=== PATIENT | male | born 1925 | race Caucasian/White ===

== ENCOUNTER 2016-09-17 17:25 | Inpatient (IN) | payer MEDICARE ==
[~2016-09-17] VITALS: Ht 180.3 cm; Wt 73.2 kg
[~2016-09-17 17:25] MED LIST: ACETAMINOPHEN325 M1 PO; AMLODIPINE BESY10 MG PO; ATENOLOL25 MG PO; CENTRUM SILVER1 EAC1 PO; COLACE100 MG PO; DOXAZOSIN MESYLA1 MG PO; KLOR-CON M2020 MEQ PO; LASIX20 MG PO; MAG-OXIDE400 MG PO; NORCO 5-325 TA1 EACH PO; PRILOSEC20 MG PO; RANITIDINE HCL150 MG PO
--- NOTE | 2016-09-17 21:15 | NUR ---
PT ARRIVED FROM E.D. VIA STRETCHER, REPORT RECEIVED FROM RIA ZULUAGA. PT IS ALERT AND ORIENTED. RATES PAIN 1/10 IN RIGHT CLAVICLE, BRUISE AND SWELLING NOTED AT SITE, PT ALSO HAS SCATTERED BRUISES ON ARMS. LUNGS CLEAR, RA. HR REGULAR, MURMUR NOTED, PT HAS PACEMAKER IN PLACE. BOWEL TONES ACTIVE, DENIES NAUSEA. CMS INTACT, NO EDEMA NOTED. INSTRUCTED USE OF CALL LIGHT, BED ALARM IS ON FOR SAFETY. WILL CONTINUE TO MONITOR.
--- NOTE | 2016-09-17 21:45 | NUR ---
ONE TIME SCHEDULED DOSE OF NORCO GIVEN. PT CURRENTLY RATES PAIN 03/17. DENIES FURTHER REQUESTS.
--- NOTE | 2016-09-17 22:48 | NUR ---
CHECKED IN ON PT WHO IS RESTING WITH EYES CLOSED. WOKE WHILE I WAS SPEAKING WITH HIS DAUGHTER. HE DENIES PAIN. DENIES FURTHER REQUESTS AT THIS TIME, WILL CONTINUE TO MONITOR.
--- NOTE | 2016-09-18 00:30 | NUR ---
PT APPEARS TO BE SLEEPING, NO APPARENT DISTRESS. RESPIRATIONS EVEN AND UNLABORED. PT'S DAUGHTER IS AT BEDSIDE. WILL CONTINUE TO MONITOR.
--- NOTE | 2016-09-18 02:07 | NUR ---
ASSESSMENT COMPLETED. REPORTS THAT PAIN IS MINIMAL AND TOLERABLE. BRUISE TO RIGHT CLAVICLE NOW APPEARS ON RIGHT CHEST/AXILLA. NO OTHER CHANGES FROM PREVIOUS ASSESSMENT. PT'S DAUGHTER IS AT BEDSIDE. PT DENIES FURTHER REQUETS AT THIS TIME, WILL CONTINUE TO MONITOR.
--- NOTE | 2016-09-18 03:56 | NUR ---
PT APPEARS TO BE SLEEPING, NO APPARENT DISTRESS. RESPIRATIONS EVEN AND UNLABORED. DAUGHTER REMAINS AT BEDSIDE. WILL CONTINUE TO MONITOR.
--- NOTE | 2016-09-18 05:14 | NUR ---
E.D. ADMIT. ALERT/ORIENTED. RATES PAIN 03/17, RECEIVED ONE TIME DOSE OF PO NORCO. LUNGS CLEAR, RA. HR REGULAR, MUMUR, PACER IN PLACE. BOWEL TONES ACTIVE, DENIES NAUSEA. SKIN FRAGILE, SCATTERED BRUISES ON ARMS, LARGE BRUISE/SWELLING TO RIGHT CLAVICLE THAT EXTENDS DOWN TO CHEST/AXILLA. 1-2PA WITH FWW. [place]. CLEAR LIQUID DIET. IV SL, PATENT. BED ALARM ON FOR SAFETY. PT'S DAUGHTER AT BEDSIDE.
--- NOTE | 2016-09-18 06:30 | NUR ---
NOTIFIED DR. SCHWARTZ THAT PT HAS HAD LOW URINE OUTPUT, 75ML FOR 0600 I&O AND 100ML FOR 0200 I&O. PT HAS BEEN SLEEPING SOUNDLY AND NOT TAKING PO INTAKE. NO NEW ORDERS RECEIVED AT THIS TIME, DR. SCHWARTZ WOULD LIKE TO WAIT AND ALLOW PT TO DRINK BEFORE MAKING ANY ADJUSTMENTS TO ORDERS.
--- NOTE | 2016-09-18 07:20 | NUR ---
BEDSIDE REPORT RECEIVED FROM JIG BORE OPERATOR RN USING 5 P'S. PT AWAKE AND ALERT. BRUISE NOTED TO R NECK/SHOULDER. PT REPORTS PAIN IN SHOULDER AND ABD. STATES PAIN IN ABD FROM NO BM X 3 DAYS. STOOL SOFTENER ORDERED BY . DAUGHTER AT BEDSIDE. SL TO L FOREARM. PT DENIES NEEDS AT THIS TIME. CALL LIGHT IN REACH.
--- NOTE | 2016-09-18 08:35 | NUR ---
RN IN TO GIVE MEDS AND DO AM ASSESSMENT. DAUGHTER STATES PT DOES NOT TAKE MEDS WITH MEAL SINCE HE OFTEN VOMITS MEALS. PT STATES FEELS FINE AND WILL TAKE LASIX WITH BREAKFAST. DAUGHTER STATES PT USUALLY KNOWS OWN LIMITS. LASIX GIVEN. PT VOMITS SHORTLY AFTER. APPROX 100 ML. PILL NOT VISUALIZED, SO UNSURE IF VOMITED. DAUGHTER STATES THIS IS NORMAL FOR PT. PT EATS A SMALL AMOUNT, EXCUSES SELF TO BATHROOM TO VOMIT, THEN RETURNS TO TABLE TO EAT A SMALL AMOUNT, AND CONTINUES PATTERN THROUGHOUT MEALS. DAUGHTER STATES PT WORRIED ABOUT WEIGHT ON SCALE, AND VOMITING SEEMS TO WORSEN WEIGHT INCREASES. DAUGHTER STATES PT DOES NOT VOMIT WHEN EATING AT SOMEONE ELSE'S HOUSE. DAUGHTER STATES IT DOESN'T MATTER WHAT KIND OF FOOD PT EATS. HE HAD COMPLAINED ABOUT HAVING TROUBLE CHEWING MEAT, SO DAUGHTER PREPARED SOFTER MEALS SUCH MASHED POTATOES, BUT NOTICED NO DIFFERENCE. PT TO CALL WHEN FINISHED WITH BREAKFAST AND FEELS READY FOR PILLS. BP MEDS HELD FOR SBP >115 PER PERAMETERS. CALL LIGHT IN REACH. DAUGHTER AT BEDSIDE.
--- NOTE | 2016-09-18 10:00 | NUR ---
PT ABLE TO FINISH TAKING AM MEDS WITHOUT DIFFICULTY. PHYSICAL THERAPY IN TO WORK WITH PT. DAUGHTER REMAINS AT BEDSIDE.
--- NOTE | 2016-09-18 13:00 | NUR ---
PT FINISHED LUNCH WITHOUT VOMITING. UP TO BR WITH 2 PERSON ASSIST FOR LARGE BM. DAUGHTER ATTMEPTING TO GET PT UP WITH RN AND CHILD AND FAMILY COUNSELOR TO ROOM IN RESPONSE TO CALL LIGHT. EXPLAINED IMPORTANCE OF WAITING FOR STAFF TO ASSIST PT. DAUGHTER EXPRESSES UNDERSTANDING. PT ASSISTED BACK TO BED. CALL LIGHT IN REACH. BED ALARM ON.
--- NOTE | 2016-09-18 13:00 | NUR ---
PT RESTING IN BED, DAUGHTER ON PHONE. SHE MOTIONED ME IN. PT HARD OF HEARING, BUT MANAGED TO KEEP CONVERSATION MOVING ALONG. HE HAS A LITTLE SENSE OF HUMOR, ANDF REQUESTED PRAYER. WILL FOLLOW NEEDED
[2016-09-18] MEDS ORDERED: OMEPRAZOLE40 MG PO (15:30)
[2016-09-18] MEDS ORDERED: DOXAZOSIN MESYLA2 MG PO (15:32)
--- NOTE | 2016-09-18 15:34 | NUR ---
MED REC COMPLETE WITH [facility] REFILL HISTORY.
--- NOTE | 2016-09-18 16:26 | NUR ---
REPORT TO OLIVA ROLLINS USING 5 P'S. TO ASSUME CARE.
--- NOTE | 2016-09-18 16:49 | NUR ---
SNOW GROOMER shaved patient while in bed.
--- NOTE | 2016-09-18 18:13 | NUR ---
PATIENT RESTING IN BED, FAMILY AT BESIDE CARRYING FOR PATIENT REQUESTS. CALLING APROPRIATLEY WHEN WANTING TO GET UP OUT OF BED AND BACK INTO BED. COMMUNITY HEALTH SPECIALIST APPEARS TO BE IN ROOM FREQUENTLY. PATIENT PAIN WELL CONTROLLED, PAIN NOW 3/10 ON PAIN SCALE. PATIENT EATING DINNER, TOLERATING WELL.
--- NOTE | 2016-09-18 19:00 | NUR ---
RECEIVED REPORT AROUND 1900. PT IS USING THE BSC. I WILL INTRODUCE MYSELF AFTER HE IS BACK IN BED.
--- NOTE | 2016-09-18 20:30 | NUR ---
PT AT TIME IS IN BED NAPING. PT STATED THAT HE IS PAINFUL IF MOVING. PT STILL HAS A LARGE BRUISE ON RIGHT NECK AND SHOULDER AREA. PT STATED AND SO DID HIS DAUGHTER THAT THEY DO NOT FEEL SAFE ENOUGH FOR HIM TO GO HOME ON 09/19/16. DAUGHTER ALSO NEEDS HOME HEALTH IN ORDER TO PROPERLY CARE FOR HER FATHER. DAUGHTER SEEMS EXHAUSTED AND OVERWHELMED BY HER FATHERS CARE NEEDS. ALL LOBES WERE CLEAR. PT WAS INSTRUCTED TO TUCK HIS CHIN IN WHEN SWALOWING SWALLOW STUDY STILL NEEDS TO BE DONE. I HELD TENORMIN DUE TO A SBP OF 114. PT IS VERY WEAK OVERALL.
--- NOTE | 2016-09-19 02:35 | NUR ---
PT IS SLEEPING AT THIS TIME.
--- NOTE | 2016-09-19 03:54 | NUR ---
ASSISTED PT BACK TO BED. PT RECEIVED 1 TAB OF NORCO5/325. PT IS VERY WEAK AND HIS URINE OUTPUT IS NOT SUFFICENT. 25ML SINCE 2199.
--- NOTE | 2016-09-19 06:00 | NUR ---
PT HAD TROUBLE SLEEPING FOR THE MOST PART DURING THIS SHIFT. PT RECEIVED 1 TAB OF NORCO THIS SHIFT. PT IS VERY WEAK AND NOT REALLY SAFE TO MOVE EVEN WITH TWO PEOPLE ASSISTING HIM. PT ALSO DOES NOT FEEL STRONG ENOUGH TO GO HOME. HIS DAUGHTER AGREES. PT NEEDS HOME HEALTH WELL. HIS DAUGHTER IS OVERWHELMED WITH HIS CARE NEEDS AT THIS POINT.
--- NOTE | 2016-09-19 08:30 | NUR ---
Patient resting in bed with his eyes closed.
--- NOTE | 2016-09-19 08:45 | NUR ---
PATIENT ASSISTED UP IN BED AND BREAKFAST PLACED IN FRONT OF HIM. PATIENT ABLE TO FEED HIMSELF BREAKFAST AND PILLS GIVEN WITH APPLESAUCE. BLOOD PRESSURE MEDICATION HELD DUE TO LOW SYSTOLIC BLOOD PRESSURE OF 103. DAUGHTER REMAINS IN THE ROOM BUT IS ASLEEP AT THIS TIME. PATIENT ABLE TO COMMUNICATE NEEDS.
--- NOTE | 2016-09-19 09:07 | NUR ---
DR SCHWARTZ NOTIFIED THAT BLOOD PRESSURE WAS 103/54 WITH A PULSE OF 60 AND THAT ALL BLOOD PRESSURE WAS HELD.
--- NOTE | 2016-09-19 09:46 | NUR ---
PATIENT REFUSED PHYSICAL THERAPY AT THIS TIME, PHYSICAL THERAPIST WILL COME BACK LATER TO WORK WITH HIM.
--- NOTE | 2016-09-19 10:23 | NUR ---
PATIENT UP TO THE CHAIR WITH THE HELP FROM PHYSICAL THERAPY, LINEN CHANGED AND A NEW GOWN PLACED ON THE PATIENT AT THIS TIME. PATIET GIVEN A WARM BLANKET AND CALL LIGHT WITHIN REACH.
--- NOTE | 2016-09-19 10:38 | NUR ---
Patient is up in his chair visiting with family at this time. Patient did not void for this vitals time. Notified his RN.
--- NOTE | 2016-09-19 11:30 | NUR ---
PATIENT VOIDED 200 MLS AT THIS TIME IN A URINAL, PT GOING TO STAY UP IN THE CHAIR FOR LUNCH THEN GET INTO BED WHEN HE IS FINISHED.
--- NOTE | 2016-09-19 12:03 | NUR ---
PATIENT IS SITTING UP IN THE CHAIR WAITING FOR LUNCH. NO REQUESTS AT THIS TIME.
--- NOTE | 2016-09-19 12:55 | NUR ---
PT RESTING IN BED AFTER MUCH TIME UP IN THE CHAIR. DENIES DISCOMFORTS OR NEEDS OF
--- NOTE | 2016-09-19 14:18 | NUR ---
PT SLEEPING SOUNDLY DAUGHTER IN ROOM
--- NOTE | 2016-09-19 14:37 | NUR ---
PATIENT RESTING IN BED. VITALS TAKEN. PATIENT USED URINAL AT THIS TIME WITH 280CC OUT.
--- NOTE | 2016-09-19 18:12 | NUR ---
DAUGHTER REMAINS IN THE ROOM WITH PT. PT TOLERATES MOST OF EVENING MEAL, RETURNS TO BED TO REST
--- NOTE | 2016-09-19 20:00 | NUR ---
RECEIVED REPORT AROUND 1899. FOUND PT IN BED SLEEPING.
--- NOTE | 2016-09-19 22:00 | NUR ---
ALL LOBES ARE CLEAR. PT HAS SOME UPPER AIRWAY FLEM WITH WHICH HE HAS DIFFICULTY TO GET IT UP. I URGE PT TO TUCK HIS CHIN WHEN HE SWALLOWS ANYTHING. PT IS STILL VERY WEAK. OVERALL THERE HAS BEEN NO CHANGE IN STATUS FOR THIS PT.
--- NOTE | 2016-09-19 23:00 | NUR ---
ROUNDED ON PATIENT. PATIENT AND FAMILY DENY AND COMPLAINTS OR CONCERNS. ALL QUESTIONS ANSWERED.
--- NOTE | 2016-09-20 01:18 | NUR ---
PT IS SLEEPING AT THIS TIME.
--- NOTE | 2016-09-20 04:04 | NUR ---
PT IS SLEEPING AT THIS TIME.
--- NOTE | 2016-09-20 05:08 | NUR ---
PT HAD AN UNEVENTFUL NIGHT. PT SLEPT MOST OF THE NIGHT. PT DENIES PAIN WHILE IN BED. NO CHANGE IN STATUS FOR THIS PT.
--- NOTE | 2016-09-20 07:32 | NUR ---
RECIEVED BEDSIDE REPORT FROM RIA FLORES. PT SLEEPING, BREATHING EVEN AND UNLABORED. DAUGHTER AT BEDSIDE.
--- NOTE | 2016-09-20 08:20 | NUR ---
PT SITTING UP IN BED WITH DAUGHTER ASSISTING WITH FEEDING. CUES TO SWALLOW. PT DENIES PAIN AT THIS TIME. DENIES NAUSEA, HAS AN EMISIS BAG AT BEDSIDE. DAUGHTER REPORTS IT IS DUE TO SWALLOWING "DOWN THE WRONG PIPE". DENIES NEED FOR PAIN MEDICATION AT THIS TIME. PT AWAKE AND ALERT, ASKING QUESTIONS REGARDING CARE. HEEL PROTECTORS IN PLACE.
--- NOTE | 2016-09-20 08:57 | NUR ---
REPOSITIONED PT IN BED. NO PAIN REPORTED.
--- NOTE | 2016-09-20 11:07 | NUR ---
PT IN BED SLEEPING. BREATHING EVEN AND UNLABORED.
--- NOTE | 2016-09-20 12:16 | NUR ---
PT SLEEPING IN CHAIR. STATES NO PAIN AT THIS TIME.
--- NOTE | 2016-09-20 13:48 | NUR ---
PT MOVED BACK TO BED AND POSITIONED. IV SITE HAS SMALL AMOUNT OF BLOOD, TRANSPERANT DRESSING CHANGED, IV FLUSHES WELL. PT RESTING IN BED.
--- NOTE | 2016-09-20 17:49 | NUR ---
PT FAMILY IS AT BEDSIDE. NO C/O PAIN EXCEPT WITH MOVEMENT, DECLINED PRN PAIN MEDS THIS SHIFT. PT RIGHT SIDE IS BRUISED, NO CHANGE IN BRUISING. PT HAS HX OF LEANING TO RIGHT SIDE. SWALLOW PRECAUTIONS IN PLACE, DAUGHTER ASSISTING WITH FEEDING. ENCOURAGE CHIN TUCK WITH SWALLOWING. 2 PERSON ASSIT. STANDS AT BEDSIDE WITH ASSIST FOR URINAL. NO BM IN 2 DAYS.
--- NOTE | 2016-09-20 20:10 | NUR ---
IN TO SEE PT, DAUGHTER AT BEDSIDE WATCHING TV, PT SLEEPING, CALL LIGHT WITHIN REACH.
--- NOTE | 2016-09-20 20:30 | NUR ---
IN TO SEE PT, VS TAKEN BP 96/47, PULSE 60, RR 17. ASSESSMENT DONE, ATENOLOL HELD PER LOW BP. DR. SCHWARTZ NOTIFIED OF LOW BP. PER DR. SCHWARTZ WATCH PATIENT BP, IF PULSE IS STABLE CONTINUE TO HOLD MEDICATIONS.
--- NOTE | 2016-09-20 23:03 | NUR ---
IN TO SEE PT, PT SLEEPING, DAUGHTER SLEEPING, CALL LIGHT WITHIN REACH.
--- NOTE | 2016-09-21 01:20 | NUR ---
IN TO CHECK ON PT, PT APPEARS TO BE SLEEPING SOUNDLY, DAUGHTER AT BEDSIDE RESTING, CALL LIGHT WITHIN REACH.
--- NOTE | 2016-09-21 02:28 | NUR ---
CALL LIGHT ANSWERED, IN TO ASSIST PT WITH URINAL. PT COMPLAIN OF PAIN IN HIS L SHOULDER. PT STATES IT FEELS LIKE HE "JAMMED HIS SHOULDER". NORCO GIVEN FOR 5/10 PAIN AND VITAL OBTAINED. PT READJUSTED IN BED FOR COMFORT. DAUGHTER AT BEDSIDE AND CALL LIGHT WITHIN REACH.
--- NOTE | 2016-09-21 04:07 | NUR ---
IN TO CHECK ON PT, PT APPEARS TO BE SLEEPING. DAUGHTER SLEEPING AT BEDSIDE. CALL LIGHT WITHIN REACH.
--- NOTE | 2016-09-21 05:08 | NUR ---
PT HAS BEEN RESTING ON AND OFF THROUGH OUT THE NIGHT. PT C/O R SHOULDER PAIN, NORCO GIVEN FOR PAIN. SWALLOW PRECAUTIONS IN PLACE AND SWALLOW EVAL SCHEDULED FOR TODAY. LIQUIDS THICKEN TO NECTAR THICK AND ENCOURAGE TO CHIN TUCK WITH SWALLOWING. BP LOW AT 2200 VITALS, ATENOLOL HELD AND MD NOTIFIED. ASSISTED WITH URINAL IN BED. PT'S DAUGHTER SLEEPING AT BEDSIDE.
--- NOTE | 2016-09-21 06:33 | NUR ---
IN TO SEE PT, VITALS OBTAINED BY PERSONNEL ASSOCIATE, PT AWAKE. PERSONNEL ASSOCIATE ASSISTED WITH WATER. NO FURTHER NEEDS AT THIS TIME. PT'S DAUGHTER AT BEDSIDE. CALL LIGHT WITHIN REACH.
--- NOTE | 2016-09-21 07:40 | NUR ---
RECIEVED BEDSIDE REPORT FROM RIA POSEY AND RIA MENDEZ. PT SLEEPING, BREATHING EVEN AND UNLABORED.
--- NOTE | 2016-09-21 07:55 | CONS ---
[facility] [address] [place], [place] [address] Signed REFERRING PHYSICIANS: Dr. Jesica Ferraro. CHIEF COMPLAINT: Ground level fall onto right shoulder. 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 He lives at home with his daughter. He is supposed to use his walker for ambulation. However, he frequently omits the walker. He often gets going too fast as leaning forward. Yesterday, he wa n christopher to forklift picker a towel from the floor and he fell and struck his right shoulder. He was brought to the emergency room for evaluation. He has quite a bit of bruising over the right shoulder. He was seen by our ER physicians, and a CT scan of his head and s pine and his x-rays were all negative. I was asked to admit him overnight as to general surgeon nutrition club ambassador. In the meantime, he has done just fine. PAST MEDICAL HISTORY: Atrial fibrillation, splenomegaly, hepatomegaly, coronary artery disease, chronic thrombocytopenia. PAST SURGICAL HISTORY: Includes abdominal aortic aneurysm repair, CABG x4, cholecystectomy, tonsillectomy and adenoidectomy, bilateral inguinal hernias, and a pacemaker. SOCIAL HISTORY: He does not smoke or drink. He lives with his daughter, Tiffanie carlos, at [phone]. Wei Hernández is his primary care provider. He generally uses a walker for ambulation. FAMILY HISTORY: Not reviewed. REVIEW OF SYSTEMS: I reviewed 10 systems with Nate and his daughter, really there is nothing new to add. ALLERGIES: Novocain. MEDICATIONS: Whitney, doxazosin, amlodipine, multivitamin, atenolol, docusate, Lasix, Zantac, Prilosec, potassium chloride, and magnesium oxide. PHYSICAL EXAMINATION: VITAL SIGNS: His blood pressure is 122/64, heart rate 71, respiratory rate 18, temperature is 98.1, he is 98%. He is 5 feet 11 inches, 73 kg. GENERAL: Nate is an 89-year-old gentleman, lying supine in his hospital bed. His daughter is in the room. He is a little on the thin side. He clearly has a large hematoma over the right supraclavicular fossa in his right chest wall. LUNGS: Clear to auscultation. Electronically Signed By: ZULMA SCHWARTZ MD 09/21/16 0755 PATIENT NAME: NTAE CALDERA CONSULTATION DATE OF : [birth year] PHYSICIAN: ZULMA SCHWARTZ MD REPORT #: [id number] REPORT IS CONFIDENTIAL AND NOT TO BE RELEASED WITHOUT AUTHORIZATION [facility] [address], [place] [address] Signed Heart: Regular rate and rhythm. ABDOMEN: Benign. LABORATORY DATA: His white blood count 6.2, hemoglobin was 12.7 and is now 1.7, his platelet count was 61,000 and it is now 62,000. His BUN is 34, creatinine 1.23, INR 1.3, PTT 58. Total bilirubin is up a little to 1.6 but the other liver function tests are fine. His albumin is 3.6. RADIOGRAPHIC STUDIES: The x-ray of his right clavicle is fine. CT scan of his head and his spine are fine. ASSESSMENT AND PLAN: Nate is an 89-year-old gentleman who suffered a ground level fall onto the right shoulder. With his thrombocytopenia, he suffered a fairly significant hematoma and bruising over that right shoulder and then on the right chest wall. He has actually done very well overnight. We are going to allow him to eat today. We will resume his chronic medications. We will have our physical therapy folk see him, in fact he just finished physical therapy as an outpatient. We will see how he does tod ay and if he does well maybe home in the morning. I have discussed this with Nate and his daughter, they have expressed understanding and agreed with the above plan. MD MIGUEL Ayala/Mike /[id number] cc:Wei Hernández Electronically Signed By: ZULMA SCHWARTZ MD 09/21/16 0755 PATIENT NAME: NATE CALDERA CONSULTATION DATE OF : [birth year] PHYSICIAN: ZULMA SCHWARTZ MD REPORT #: [id number] REPORT IS CONFIDENTIAL AND NOT TO BE RELEASED WITHOUT AUTHORIZATION
--- NOTE | 2016-09-21 10:12 | NUR ---
MET WITH PT AND HIS 2 DAUGHTERS THO (WHOM HE LIVES WITH AND STATES SHE CAN'T TAKE CARE OF HIM ANYMORE) AND MELONIE, ALSO DAUGHTER IN LAW RAJAN WAS THERE. I STARTED TO GO OVER WHAT DR SCHWARTZ HAD DISCUSSED WITH ME ABOUT THIS PT, THO STARTS YELLING SOMETHING ABOUT ONE OF THE OTHER SIBLINGS AND STATING THAT IS NOT GOING TO HAPPEN--HE IS NOT GOING TO A FACILITY AND I CAN'T TAKE CARE OF HIM AND NO ONE WILL LISTEN TO ME. I RAISED MY HAND TO SHUSH HER AND PROCEEDED TO TELL HER THAT WE HAD BEEN THINKING WE COULD PUT HIM IN A SWING BED IF THE DR APPROVED IT. AFTER EXPLAINING TO EVERYONE WHAT THAT WAS AND TRYING TO GET A WORK IN WHILE THIS DAUGHTER IS THERE. MELONIE SAYS AND WHEN YOU GET STRONGER YOU CAN GO TO [employer] OR MY HOUSE THO IS GOING TO BE GONE FOR 2 MONTHS SOMETIME IN . THO GET ANGRY STARTS YELLING AGAIN, STATES SHE IS NOW LEAVING NO ONE IS LISTENING TO HER. ATTEMPTED TO CALM HER DOWN AND STATE THAT SHE WASN'T GOING TO BE THERE AND SHE DIDN'T WANT HIM GOING TO A FACILITY , SO WHERE AND WHAT DID SHE WANT DONE WITH DAD, SHE CONT TO YELL AND LEFT THE ROOM STATING SHE WAS MAD, SO MAD, HOPPING MAD. I EXCUSED MYSELF FROM THE ROOM STATING I HAD COME TO TALK TO THEM ABOUT THE SWING BED AND THE THINGS THAT THE PT WOULD HAVE TO DO TO PARTICIPATE IN THE SWING BED. PT STATED HE WANTED TO BE A SWING BED/ TRANSITIONAL BED PT. CALLED AND EXPRESSED WISHES TO DR SCHWARTZ AND TALKED WITH DR GONZALES ABOUT ACCEPTING PT SHE STATED SHE WILL.
--- NOTE | 2016-09-21 11:09 | NUR ---
PT GETTING UP WITH PHYSICAL THERAPY.
--- NOTE | 2016-09-21 12:14 | NUR ---
PT EATING LUNCH IN CHAIR. PT STATED THAT HE WOULD LIKE SMALLER PORTIONS.
--- NOTE | 2016-09-21 12:58 | NUR ---
2 person assist with gate belt to bed. patient resting in be with daughter by his side.
--- NOTE | 2016-09-21 13:02 | NUR ---
PT SOMEWHAT ALERT AND ORIENTED. HAD TO SIT VERY CLOSE TO PT-HEARING SEEMS TO BE WORSE THAN LAST WEEK. GOOD VISIT-PT FELT GUILTY ABOUT HOW MUCH FOOD HE FELT HE WAS WASTING. I CONTACTED MOTO MIX OPERATOR YVETTE, SHE PLACED AN ORDER FOR SMALLER PORTIONS FOR FOOD. HE STILL HAD A SENSE OF HUMOR. HEMATOMA STILL VERY BLACK AND BLUE, PT COMPLAINED OF PAIN STILL IN HIS RIGHT ARM. HIS DID MENTION THAT IT WAS GETTING BETTER. HIS FAMILY IN TO VISIT, I WILL CONTINUE TO FOLLOW
--- NOTE | 2016-09-21 14:06 | NUR ---
PT IS SLEEPING IN BED, BREATHING EVEN AND UNLABORED. PT'S DAUGHTER IS NOT AT BEDSIDE AT THIS TIME. PRN PAIN MEDICATION EFFECTIVE.
--- NOTE | 2016-09-21 16:14 | NUR ---
PT UP TO SHOWER WITH SALT REFINER. REPOSITIONED IN BED. PT VOIDED 250ML. PT REQUESTED PAIN MEDS, PT NOT ELIGIBLE FOR MEDS AT THIS TIME. PT IS ON DAY 3 OF NO BM. DAUGHTER STATED THAT AT HOME WHEN HE HAS NOT HAD A BM IN 3 DAY, HE GETS A LAXITIVE.
--- NOTE | 2016-09-21 17:50 | NUR ---
PT UP TO CHAIR AND SHOWER WITH ENGINEERING DESIGNER. PAIN IS CONTROLED WITH PRN NORCO. FAMILY AT BEDSIDE. PT REQUESTS SMALLER MEAL PORTIONS, FEELS HE IS WASTING TOO MUCH FOOD. NO REPORTS OF NAUSEA, "SPITS UP" AFTER MEALS. VOIDING WELL. DAY 2 NO BM. BOWEL PROTOCOL ORDERED. CARDIAC MEDS HELD THIS AM.
--- NOTE | 2016-09-21 20:11 | NUR ---
IN TO SEE PT, ASSISTED WITH URINAL, ATTENDS CHANGED, PT REPOSITIONED. NO FURTHER COMPLAINTS AT THIS TIME. DAUGHTER THO AT BEDSIDE. CALL LIGHT WITHIN REACH.
--- NOTE | 2016-09-21 23:37 | NUR ---
IN TO CHECK ON PT, PT APPEARS TO BE SLEEPING, DAUGHTER SLEEPING AT BEDTIME, CALL LIGHT WITHIN REACH.
--- NOTE | 2016-09-22 00:25 | NUR ---
IN TO ASSIST WITH REPOSITIONING OF PT, PT C/O PAIN IN HIS BACK DUE TO WRINKLE IN SHEETS, PT REPOSITIONED AND COMPLAINT RESOLVED. PT RESTING, DAUGHTER THO SLEEPING AT BEDSIDE. CALL LIGHT WITHIN REACH.
--- NOTE | 2016-09-22 02:00 | NUR ---
IN TO CHECK ON PT, PT APPEARS TO BE SLEEPING. DAUGHTER ASLEEP AT BEDSIDE. CALL LIGHT WITHIN REACH.
--- NOTE | 2016-09-22 03:11 | NUR ---
IN TO ASSIST PT WITH URINAL, PT C/O OF NECK DISCOMFORT, REPOSITION AND NEW PILLOW GIVEN. OFFERED PAIN MEDICATION, PT IS CONCERNED ABOUT USING MEDICATION TO SLEEP AND DECLINED MEDICATION AT THIS TIME. ADVISED THAT WILL BE BACK TO CHECK ON PT AND CAN REASSESS NEED FOR MEDICATION AT ANYTIME. DAUGHTER AT BEDSIDE, CALL LIGHT WITHIN REACH.
--- NOTE | 2016-09-22 05:20 | NUR ---
PT RESTING THROUGHOUT THE NIGHT. NO MEDICATION FOR PAIN REQUIRED. SWALLOW PRECAUTIONS IN PLACE, NECTAR THICK LIQUIDS AT BEDSIDE. ASSISTED IN BED WITH URINAL. PT'S DAUGHTER THO SLEEPING AT BEDSIDE.
--- NOTE | 2016-09-22 06:27 | NUR ---
IN TO GIVE AM MEDICATIONS, PT AWAKE, FRESH THICKENED ICE WATER GIVEN. PT'S DAUGHTER SLEEPING AT BEDSIE. REPOSITIONED IN BED, CALL LIGHT WITHIN REACH.
--- NOTE | 2016-09-22 06:44 | NUR ---
IN TO OBTAIN FOR I&D, PT STATES HE DOES NOT RECALL REVIEWING THE CONSENT FORM WITH DR. SCHWARTZ. PT C/O OF YI IN THE L SIDE OF HIS HEAD. PER DR. SCHWARTZ PT IS OKAY TO HAVE APAP WITH A SIP OF H2O. DR. SCHWARTZ IN TO REVIEW CONSENT FORM WITH PT.
--- NOTE | 2016-09-22 08:13 | NUR ---
RECIEVED BEDSIDE REPORT FROM RIA POSEY. PT SLEEPING, BUT AWAKES TO VOICE. PT REPORTS NO PAIN AT THIS TIME.
--- NOTE | 2016-10-02 12:08 | DS ---
[facility] [address], [place] [address] Signed ADMIT DATE: 09/17/2016 DISCHARGE DATE: 09/22/2016 FINAL DIAGNOSES: Right shoulder contusion/hematoma/ecchymoses. PROCEDURES: Multiple x-rays. HISTORY OF PRESENT ILLNESS: Nate is an 89-year-old gentleman, who lives at home with his daughter. He is supposed to use his walker when ambulating. However, he frequently omits the walker while in the house and goes from furniture to furniture and frequently goes along the wall. Unfortunately, he often falls down as well. He was planning to lean over to pic up a towel off the floor and fell onto his right shoulder and his chest and neck area. He also has hepatosplenomegaly with chronic thrombocytopenia, which he has declined outpatient workup. As a result, he developed rather significant ecchymoses over his right neck, chest wall, and right arm. He was brought to the emergency room for evaluation. HOSPITAL COURSE: In the emergency room, Rhett was thoroughly evaluated by Dr. Jesica Ferraro. CT scan of his head and spine were fine. X-rays of his shoulder and clavic le were all fine. I have been asked to admit him overnight for observation. Rhett was done fine with respect to his right shoulder contusion. However, he is quite weak and we have had Physical Therapy seeing him on a daily basis. We came through the weekend and we had multiple discussions about placement for Nate. His daughters were very concerned about taking him back home at this point that he will just simply fall again. In the meantime, his ecchymoses is starting to resolve and he has been eating well. After discussing his situation with his family and our product planner, they would like to put him on our Swing Bed with physical therapy at least for a few days to see how things go. Consequently, we are going to be discharging him to the Swing Bed and our Hospitalist Service will be following him. DISCHARGE PLANS AND MEDICATIONS: Rhett will be discharged to our Swing Bed with ongoing physical therapy. He can continue a regular diet. He can continue his chronic medications at home. He is welcome to follow u p my office in the next 3 or 4 weeks for evaluation. I have reviewed this with Nate and family and they have expressed understanding and agreed with the above plan. Zulma Schwartz MD Electronically Signed By: ZULMA SCHWARTZ MD 10/02/16 1208 PATIENT NAME: NATE CALDERA DISCHARGE SUMMARY DATE OF : [birth year] PHYSICIAN: ZULMA SCHWARTZ MD REPORT #: [id number] REPORT IS CONFIDENTIAL AND NOT TO BE RELEASED WITHOUT AUTHORIZATION [facility] [address] [place] [id number] Signed /Mike /[id number] cc: MD Wei Ayala Patient's Chart Electronically Signed By: ZULMA SCHWARTZ MD 10/02/16 1208 PATIENT NAME: NATE CALDERA DISCHARGE SUMMARY DATE OF : [birth year] PHYSICIAN: ZULMA SCHWARTZ MD REPORT #: [id number] REPORT IS CONFIDENTIAL AND NOT TO BE RELEASED WITHOUT AUTHORIZATION
== END 2016-09-22 08:55 | disposition swing bed (61) | DRG 605 ==
LOC: ED 17:25 → MS 17:26
PROVIDERS: ADMIT Colon & Rectal Surgery
DX: S10.83XA Contusion of other specified part of neck, initial encounter (principal); D69.6 Thrombocytopenia, unspecified; I48.91 Unspecified atrial fibrillation; I25.10 Atherosclerotic heart disease of native coronary artery without angina pectoris; Z95.0 Presence of cardiac pacemaker
CPT/HCPCS: 36415; 70450; 72125; 73000; 80048; 80053; 83735; 84100; 85025; 85610; 85730; 94760; 97116; 97163; 97530

== ENCOUNTER 2016-09-22 08:55 | Inpatient (IN) | payer MEDICARE ==
[~2016-09-22] VITALS: Ht 180.3 cm; Wt 73.2 kg
[~2016-09-22 08:55] MED LIST changes: +DOXAZOSIN MESYLA2 MG PO; +OMEPRAZOLE40 MG PO
--- NOTE | 2016-09-22 09:07 | NUR ---
MED REC COMPLETE
--- NOTE | 2016-09-22 11:25 | NUR ---
PATIENT OUT TO HAVE X-RAY. LINENS CHANGED ROOM PICKED UP. CHAIR SET UP FOR PATIENT. DAUGHTER IN ROOM. PATIENT WOULD LIKE TO HAVE A SHOWER AFTER HE HAS A BM.
--- NOTE | 2016-09-22 11:50 | NUR ---
SPOKE WITH DR GONZALES RE: FIRMNESS ON LOWER RIGHT ABD BRUISE. DR. GONZALES AWARE, MONITOR AT THIS TIME. CHANGE FLUIDS TO THIN LIQUIDS PER DR GONZALES. KITCHEN ADVISED. PT MUST HAVE FEEDING ASSISTANCE. DAUGHTER AWARE.
--- NOTE | 2016-09-22 11:57 | NUR ---
ASSISTED PT BACK TO BED, NO BM. PT REPORTS FEELING LIKE HE HAS TO GO.
--- NOTE | 2016-09-22 13:55 | NUR ---
PATIENTIN BED RESTING. RELAY ASSOCIATE SHAVED, WASHED, AND APPLIED LOTION TO FACE. GLASSES CLEANED. FRESH ICE WATER NO OTHER NEEDS AT THIS TIME.
--- NOTE | 2016-09-22 15:49 | NUR ---
PATIENT UP TO AMBULATE IN ROOM WITH PHYSICAL THERAPY. PATIENT SITTING IN CHAIR AND DOING ROM WITH PHYSICAL THERAPY.
--- NOTE | 2016-09-22 18:16 | NUR ---
PT CHANGED TO SWING BED. UP IN ROOM AMBULATING WITH PHYSICAL THERAPY. OCCUPATIONAL THERAPY IN WITH PT. REGULAR DIET, GROUND/MOIST TEXTURE. THIN LIQUIDS PER DR. GONZALES. DAY 3 NO BM, PT HAS BEEN UP TO TOILET MULTIPLE TIMES ATTEMPTING. PASSING GAS FREQUENTLY.
--- NOTE | 2016-09-22 20:10 | NUR ---
IN TO SEE PT AND HELP ASSIST CHAIR TO BED. PT ASSISTED TO BSC TO ATTEMPT BM. 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
--- NOTE | 2016-09-22 22:10 | NUR ---
IN TO CHECK ON PT, PT APPEARS TO BE SLEEPING, DAUGHTER AT BEDSIDE, CALL LIGHT WITHIN REACH.
--- NOTE | 2016-09-23 00:25 | NUR ---
IN TO CHECK ON PT, PT APPEARS TO BE SLEEPING, NO APPARENT DISTRESS. DAUGHTER SLEEPING AT BEDTIME. CALL LIGHT WITHIN REACH.
--- NOTE | 2016-09-23 02:32 | NUR ---
IN TO CHECK ON PT, PT SLEEPING. DAUGHTER SLEEPING AT BEDSIDE. CALL LIGHT WITHIN REACH.
--- NOTE | 2016-09-23 04:33 | NUR ---
PT CHANGED TO SWING BED. PT HAD UNEVENTFUL SHIFT. UP TO THE BEDSIDE COMMODE WITH WALKER AND 1 PERSON ASSIST. NO BM AT THIS TIME. PT IS PASSING GAS. PT HAS NOT REQUIRED PAIN MEDICATION. DAUGHTER THO AT BEDSIDE.
--- NOTE | 2016-09-23 08:49 | NUR ---
WHEN I CAME IN PATIENT WAS SLEEPING. I DID NOT DISTURB. HIS CALL LIGHT WENT OFF A COUPLE MINUTES LATER AND I CAME BACK IN TO ASSIST TO THE BSCOMMODE. PATIENT VOIDED. I THEN TRANSFERRED PATIENT TO CHAIR AND DID A COMPLETE LINEN CHANGE. PATIENTS DAUGHTER ASSISTED HIM WITH BREAKFAST.
--- NOTE | 2016-09-23 10:50 | NUR ---
ADMINISTERED ENEMA, PATIENT TOLERATED WELL. LARGE SOFT FORMED MOVMENT. PATIENT TRANSFERED TO [facility]LL, NO COMPLAINTS OF PAIN AT THIS TIME. ENCOURAGED PATIENT TO DRINK MORE FLUIDS. PATIENT VERBALIZED UNDERSTANDING. VS STABLE.
--- NOTE | 2016-09-23 14:11 | NUR ---
PATIENT SLEEPING IN BED. LUNCH HAS BEEN SITTING IN HIS ROOM FOR AWHILE SO I WOKE HIM UP TO SEE IF HE WAS HUNGRY. HE SAID HE WILL EAT IN A LITTL BIT AND WENT BACK TO SLEEP. I WILL CHECK BACK IN 20 MINUTES.
--- NOTE | 2016-09-23 14:30 | NUR ---
PATIENT'S DAUGHTER VERABLIZED FRUSTRATION THAT PATIENT HAD NOT EATEN WHEN SHE RETURNTED TO ROOM. PROFESSOR OF BIOLOGY REPORTED TO THIS NURSE THAT PATIENT HAD REFUSED AND WANTED TO SLEEP MORE, REQUESTING TO EAT IN ANOTHER 20 MIN. NEW TRAY WAS ORDER PER FAMILY AND PATIENT REQUEST, AND PATIENT AND FAMILY WAS REASSURED ASSISTANCE TO EAT COULD BE PROVIDED. TRAYS FOR ROOM WILL NOW BE DELIVERED TO [facility] REMOVER AND WHEN PROFESSOR OF BIOLOGY IS AVAILABLE TO ASSIST WITH EATING, THEN THE TRAY WILL BE DELIVERED TO ROOM TO ENSURE SAFETY AND THAT FOOD IS FED IN A TIMELY MANNER. PATIENT AND FAMILY VERBALIZED UNDERSTANDING.
--- NOTE | 2016-09-23 15:51 | NUR ---
PATIENTS DAUGHTER FED HIM THE FRESH LUNCH THAT WAS BROUGHT UP TO HIM. I TOOK TRAY OUT OF ROOM. PATIENT ATE 100 PERCENT. PATIENTS DAUGHTER WAS PLEASENT AND STATED SHE DID NOT NEED ANYTHING AT THIS TIME. PATIENT ALSO IS DOING OKAY. CALL LIGHT WITHIN REACH.
--- NOTE | 2016-09-23 20:00 | NUR ---
RECEIVED REPORT AT 1900. FOUND PT IN BED AWAKE AND ALERT. PT OVERALL LOOKS MUCH BETTER. PT DENIES PAIN AT THIS TIME.
--- NOTE | 2016-09-23 22:50 | NUR ---
ALL LOBES ARE CLEAR. GAVE EVENING MEDS WITH APPLE SAUCE. PT TUCKED CHIN INTO CHEST AND TOLERATED MEDS WELL WITHOUT ASPIRATING. PT IS PYSICALLY MUCH STRONGER. PT STILL DENIES PAIN AND IS READY FOR BED AT THIS TIME.
--- NOTE | 2016-09-24 00:30 | NUR ---
PT IS RESTING AT THIS TIME.
--- NOTE | 2016-09-24 03:41 | NUR ---
CAN ASSISTED PT TO BATHROOM. PT IS REQUESTING PAIN MEDICATION.
--- NOTE | 2016-09-24 04:56 | NUR ---
PT OVERALL HAD AN UNEVENTFUL NIGHT. PT TOOK MEDS WELL WITH APPLE SAUCE. PT RECEIVED 1 NORCO FOR PAIN THIS SHIFT. NO NEW ISSUES NOTED THIS SHIFT. PT OVERALL IS PHYSICALLY STRONGER.
--- NOTE | 2016-09-24 07:35 | NUR ---
PATIENT UP TO RECLINER, PROVIDED MORNING MEDS BEFORE BREAKFAST PER DAUGHTERS REQUEST. 1 TAB NORCO ADMINISTERED, RATES PAIN 4/10 WITH MOVEMENT. LUNG SOUNDS CLEAR. BRUISING CONTINUES TO APPEAR DARK PURPLE. FULL BODY ASSESMENT DONE.
--- NOTE | 2016-09-24 11:00 | NUR ---
GAVE PATIENT A SHOWER. GOT HIM SETTLED BACK INTO CHAIR AND PICKED UP ROOM. LUNCH HAS BEEN ORDERED. DAUGHTER STILL IN ROOM WITH PATIENT. CALL LIGHT WITHIN REACH. BOTH PATIENT AND DAUGHTER STATE THEY DO NOT NEED ANYTHING AT THIS TIME.
--- NOTE | 2016-09-24 11:37 | NUR ---
PATIENTS LUNCH SHOWED UP AT NURSES STATION. I TOOK RIGHT INTO PATIENTS ROOM. I HELPED HIS DAUGHTER GET SET UP TO FEED HIM. PUT TOWEL ACROSS CHEST AND GOT HER A PLASTIC KNIFE TO CUT CHICKEN UP WITH. I LET PATIENT AND DAUGHTER KNOW TO CALL US IF THEY NEEDED ANYTHING.
--- NOTE | 2016-09-24 11:48 | NUR ---
I WAS SITTING OUT AT NURSES STATION CATCHING UP AND CHARTING. PATIENTS DAUGHTER CAME OUT AND TOLD ME HE WAS VOMITING UP HIS LUNCH. I WENT INTO PATIENTS ROOM AND GOT HIM A NEW THROW UP BACK AND A WARM WASH CLOTH TO CLEAN HIS FACE WITH. I LET NURSE OLIVA KNOW HE WAS VOMITING.
--- NOTE | 2016-09-24 12:00 | NUR ---
PATIENT APPEARS COMFORTBLE, NO COMPLAINTS OF PAIN. HAD SOME EMESIS AT LUNCHTIME, UP AMBULATING IN HALLS WITH PHYSICAL THERAPY. APPEARS TO BE TRYING TO ASSIST SELF MORE.
--- NOTE | 2016-09-24 12:44 | NUR ---
PATIENT RESTING IN CHAIR. I TOOK PATIENTS LUNCH TRAY OUT OF ROOM. I CAME BACK AND OFFERED HIM TO GO BACK TO BED I KNEW HE WANTED TO AFTER LUNCH. HE TOLD ME PHYSICAL THERAPY WILL BE THERE AT 1300 TO WALK HIM SO HE WOULD GET IN BED AFTER THAT. PATIENT STATES HE DOES NOT NEED ANYTHING AT THIS TIME. HIS CALL LIGHT IS IN REACH.
--- NOTE | 2016-09-24 16:51 | NUR ---
Answered call light needed help to use the urinal.
--- NOTE | 2016-09-24 16:54 | NUR ---
Patient is sleeping.
--- NOTE | 2016-09-24 20:00 | NUR ---
RECEIVED REPORT AROUND 1900. PT WAS UP IN CHAIR SLEEPING.
--- NOTE | 2016-09-24 22:30 | NUR ---
PO INTAKE HAS NOT ADEQUATE. SBP WAS 97. MD JUDD WAS NOTIFIED AND A ONE TIME 1000ML NS AT 125ML/HR WAS ORDERED. PT ALSO RECEIVED 1 TAB OF NORCO. ALL LOBES ARE CLEAR, NO PERIPHERAL EDEMA NOTED. PT OVERALL SEEMS TO BE DOING WELL. ENCOURAGED PT TO INCREASE HIS PO INTAKE.
--- NOTE | 2016-09-25 00:42 | NUR ---
PT IS SLEEPING AT THIS TIME.
--- NOTE | 2016-09-25 02:12 | NUR ---
PT IS RESTING AT THIS TIME.
--- NOTE | 2016-09-25 05:01 | NUR ---
ASSISTED PT WITH URINAL. OUTPUT THIS SHIFT HAS BEEN 450ML SO FAR. PT IS BACK IN BED SLEEPING.
--- NOTE | 2016-09-25 05:01 | NUR ---
PT OVERALL HAD AN UNEVENTFUL NIGHT. PT HAS BEEN SLEEPING ALL NIGHT. OUTPUT IS MUCH BETTER. PO INTAKE HAS BEEN ENCOURAGED AT START OF SHIFT. PT RECEIVED 1 TAB OF NORCO AT START OF SHIFT. OTHERWISE NO CHANGES FOR THIS PT NOTED.
--- NOTE | 2016-09-25 07:45 | NUR ---
SHIFT ASSESSMENT COMPLETE. VSS. PT AAO X 3. MARKED BRUISING NOTED ON R SIDE OF NECK, SIDE AND ARM. HEART MURMUR AUSCULTATED. LUNG SOUNDS DIMINISHED AT BASES. PT RESTS COMFORTABLY WITH DAUGHTER AT BEDSIDE.
--- NOTE | 2016-09-25 08:25 | NUR ---
MEDICATED WITH 1 NORCO PO PER PT REQ FOR R SIDED PAIN 07/15.
--- NOTE | 2016-09-25 09:00 | NUR ---
PT HAS 200 ML EMESIS (HASHBROWNS AFTER EATING). RESTS COMFORTABLY IN CHAIR NOW WITH DAUGHTER AT SIDE.
--- NOTE | 2016-09-25 09:15 | NUR ---
REPORT TO DR. JUDD REGARDING PT BP AND HEARTRATE. SCHEDULED DOSE OF LOPRESSOR 25 MG GIVEN PO PER DR. JUDD'S ORDERS.
--- NOTE | 2016-09-25 10:10 | NUR ---
PT MEDICATED WITH 1 NORCO PER PT REQ PRIOR TO PHYSICAL THERAPY FOR R SIDED PAIN 07/15. DENIES FURTHER NEEDS.
--- NOTE | 2016-09-25 10:16 | NUR ---
PT IS SITTING UP IN CHAIR RESTING WITH FEET UP. PT DID NOT NEED ANYTHING ELSE AT THE MOMENT
--- NOTE | 2016-09-25 12:00 | NUR ---
PT RESTS COMFORTABLY WITH PLEASANT AFFECT. VISITS WITH FAMILY AT BEDSIDE. DENIES NEEDS.
--- NOTE | 2016-09-25 14:00 | NUR ---
LUNCH, REG SOFT DIET EATEN 40%. STATES NO COMPLAINTS.
--- NOTE | 2016-09-25 15:05 | NUR ---
PT IS RECLINING IN CHAIR WATCHING TV. PT SAID HE WAS COMFORTABLE AND DID NOT NEED ANYTHING. ASKED IF PT WAS READY TO SHOWER HE SAID HE WAS STILL TOO TIRED.
--- NOTE | 2016-09-25 16:00 | NUR ---
PT UP TO BR WITH 2 PERSON ASSIST. NO RESULT. TO BED WITH SCDS AND HEEL PROTECTORS. ORIENTED TO CALLLIGHT. TOLERATES ACTIVITY WELL WITH NO COMPLAINTS.
--- NOTE | 2016-09-25 16:04 | NUR ---
Sitting up in his chair all morning. Nurse and I just put him back to bed.
--- NOTE | 2016-09-25 18:00 | NUR ---
RESTS COMFORTABLY WITH REG RESPS OBS. DAUGHTER REMAINS AT PT BEDSIDE. PT LEFT UNDISTURBED.
--- NOTE | 2016-09-25 18:12 | NUR ---
PT IS LYING IN BED WATCHING TV. PT DID NOT NEED ANYTHING AT THE MOMENT
--- NOTE | 2016-09-25 20:00 | NUR ---
RECEIVED REPORT AT 1900. FOUND PT IN BED WATCHING TV. I ASSISTED PT TO BATHROOM. PT IS A X1 ASSIST WITH WALKER AND IS DOING MUCH BETTER WALKING.
--- NOTE | 2016-09-25 21:59 | NUR ---
HELD LOPRESSOR 25MG EARLIER DUE TO HR <60. MD UJDD WAS CALLED. HE SAID TO RETAKE HR AND BP AGAIN. HR WAS 61 AND SBP WAS 131. LOPRESSOR 25MG WAS GIVEN. ALL LOBES ARE CLEAR. ENCOURAGED PO INTAKE. PT WANTS TO SLEEP NOW. NO NEW PROBLEMS NOTED SO FAR.
--- NOTE | 2016-09-26 01:42 | NUR ---
PT IS SLEEPING AT THIS TIME.
--- NOTE | 2016-09-26 03:59 | NUR ---
ASSISTED PT WITH URINAL. 200ML OUT. PT IS TRYING TO SLEEP.
--- NOTE | 2016-09-26 05:04 | NUR ---
LOPRESSOR WAS GIVEN A LITTLE LATE DUE TO HR CONCERNS. PT ALSO RECEIVED 1 TAB OF NORCO AT BEDTIME. PO INTAKE IS STILL NOT EXCELLENT. PT HAS BEEN SLEEPING MOST OF THE NIGHT WITH DAUGHTER AT BEDSIDE. PT DID ATTEMPT TO GET OUT OF BED ONCE BUT DAUGHTER STOPPED HIM. BED ALARM NEEDS TO BE ON AT ALL TIMES. PT IS NOW STRONG ENOUGH TO GET OUT OF BED BUT NOT STRONG ENOUGH TO WALK ALONE. OTHERWISE THERE ARE NO NEW CONCERNS FOR THIS PT SO FAR.
--- NOTE | 2016-09-26 08:00 | NUR ---
PATIENT UP TO THE CHAIR FOR BREAKFAST. DAUGHTER FEEDING THE PATIENT AT THIS TIME. PATIENTS FAMILY ASKED FOR MEDICATIOH TO BE GIVEN AFTER BREAKFAST SO THAT HE DID NOT VOMIT UP MEDICATION.
--- NOTE | 2016-09-26 09:00 | NUR ---
PATIENT REMAINS UP IN THE CHAIR, ATE 100% OF HIS BREAKFAST AND HAD A SMALL EMESIS. PATIENTS LINEN CHANGE DONE AND IS NOW REQUESTING A SHOWER. AM MEDICATION GIVEN TO HIM.
--- NOTE | 2016-09-26 10:05 | NUR ---
PATIENT UP WORKING WITH PHYSICAL THERAPY
--- NOTE | 2016-09-26 10:29 | NUR ---
PT IS SITTING UP IN CHAIR WATCHING TV. SOON HIS DAUGHTER RETURNS PT WILL SHOWER.
--- NOTE | 2016-09-26 11:34 | NUR ---
PT HAS SHOWERED AND SHAVED AND IS NOW IN BED RESTING WITH CALL LIGHT IN REACH
--- NOTE | 2016-09-26 11:34 | NUR ---
PATIENT UP TO THE BATHROOM TO SHOWER WITH ASSISTANCE FROM THE EQUIPMENT INSTALLER
--- NOTE | 2016-09-26 14:00 | NUR ---
patient resting in bed with eyes closed, daughter remains in the room to help the patient.
--- NOTE | 2016-09-26 14:55 | NUR ---
PT IS RESTING WITH EYEA CLOSED, RESPERATIONS EVEN. BED ALARM ON.
--- NOTE | 2016-09-26 16:28 | NUR ---
patient had a small emesis aprox. 25 mls of food material. face and hands cleaned up and patient lying back in bed with rails up.
--- NOTE | 2016-09-26 17:48 | NUR ---
PATIENTS DAUGHTER IN THE ROOM TO ASSIST WITH FEEDING THE PATIENT, PATIENT SITTING STRAIT UP IN BED.
--- NOTE | 2016-09-26 19:04 | NUR ---
PT IS SITTING UP IN CHAIR WATCHING TV, DID NOT NEED ANYTHING AT THE MOMENT
--- NOTE | 2016-09-26 19:20 | NUR ---
REPORT RECEIVED FROM OFFGOING NURSE. PT SITTING UP IN RECLINER, DAUGHTER AT BEDSIDE. CALL LIGHT WITHIN REACH.
--- NOTE | 2016-09-26 21:00 | NUR ---
PT ASSESSMENT COMPLETE. PT RATES PAIN TO R NECK AND SHOULDER 06/15. PRN PAIN MEDCIATION GIVEN. BRUISING PRESENT TO R NECK, ARM, ABD. PT REPOSITIONED TO L SIDE IN THE RECLINER. PT DENIES OTHER NEEDS AT THIS TIME. CALL LIGHT WITHIN REACH.
--- NOTE | 2016-09-26 22:00 | NUR ---
PT ASSISTED TO BED, 1PA WITH FWW. PT TOLERATED WELL. DAUGHTER PRESENT IN ROOM. PT DENIES OTHER NEEDS AT THIS TIME. DECLINES WARM BLANKET. CALL LIGHT WITHIN REACH.
--- NOTE | 2016-09-26 23:45 | NUR ---
PT RESTING IN BED WITH EYES CLOSED. RESPIRATIONS ARE EVEN AND UNLABORED. PT APPEARS TO BE SLEEPING. DAUGHTER IS SLEEPING AT BEDSIDE. CALL LIGHT WITHIN REACH.
--- NOTE | 2016-09-27 02:47 | NUR ---
PT RESTING WITH EYES CLOSED. WAKES TO NAME CALLING AND GENTLE SHAKE. PT DENIES PAIN. REPOSITIONED TO L SIDE AND PROPPED WITH PILLOWS. PT TOLERATED WELL. PT'S DAUGHTER REMAINS IN ROOM. CALL LIGHT WITHIN REACH.
--- NOTE | 2016-09-27 04:26 | NUR ---
PT SLEPT MAJORITY OF SHIFT. PRN NORCO GIVEN X 1 FOR 4/10 PAIN. 1 PA WITH FWW TO BATHROOM. NO IMPULSIVITY OR ATTEMPTS TO GET OUT OF BED UNAIDED THIS SHIFT. PT'S DAUGHTER REPORTS LOW APPETITE AND LOW DESIRE TO DRINK FLUIDS. DAUGHTER REMAINS AT BEDSIDE.
--- NOTE | 2016-09-27 05:33 | NUR ---
PT CALLS, ASKS TO BE REPOSITIONED IN BED. PT USED URINAL WITH ASSISTANCE. REQUESTS DRINK OF WATER. PT TOLERATED WELL; NO COUGHING, CHOKING, OR VOMITTING NOTED. PT POSITIONED TO R SIDE, PROPPED WITH PILLOW. DENIES FURTHER NEEDS. CALL LIGHT WITHIN REACH. PT'S DAUGHTER AWAKE AT BEDSIDE.
--- NOTE | 2016-09-27 09:25 | NUR ---
PT C/O 4/10 PAIN TO RIGHT SIDE OF NECK, RIGHT SHOULDER, AND RIGHT ARM. PT SITTING UP IN RECLINER. ATE 100% OF BREAKFAST WITH ASSISTANCE FROM DAUGHTER, WHO REPORTED THAT PT ATE 50%, HAD EMESIS, THEN ATE THE OTHER 50% AND HAD EMESIS AGAIN. TOTAL EMESIS 250 CC. PT'S DAUGHTER REPORTS THAT THIS IS PT'S BASELINE, THAT HE HAS EMESIS AFTER EATING CONSISTANTLY AT HOME. EDUCATED PT ABOUT NEED TO TUCK CHIN DOWN WITH SWALLOW. PT AGREED TO DO SO.
--- NOTE | 2016-09-27 10:05 | NUR ---
PT SITTING UP IN RECLINER. DENIES NEEDS. DAUGHTER AT SIDE.
--- NOTE | 2016-09-27 12:10 | NUR ---
PER JULIANE Gallardo RN REPORT, PT HAD A VERY LARGE BM.
--- NOTE | 2016-09-27 15:16 | NUR ---
CHECKED ON PT TO SEE IF HE NEEDED ANYTHING AND HE JUST WANTED HIS LIGHTS OFF AND TO REST. I REPOSITIONED HIM TO HIS RIGHT SIDE WITH A PILLOW UNDER HIS BACKSIDE AND SHUT OFF HIS LIGHTS. I ASKED IF HE WANTED ANY FOOD AND HE SAID NO, HIS NURSE ASKED ME TO GET HIM AN ENSURE, SO HE NOW HAS A VANILLA ENSURE ON HIS BEDSIDE TABLE.
--- NOTE | 2016-09-27 17:32 | NUR ---
PT IN BED, ASSISTED UP TO RECLINER. ORDERED VEGETABLE BEEF SOUP FOR PT. CALL LIGHT IN REACH. TRANSFERED FROM BED TO RECLINER WITH 1 PERSON MINIMAL ASSIST.
--- NOTE | 2016-09-27 18:15 | NUR ---
PT TRANSFERS WITH FWW WITH MINIMAL ASSIST. PT WEAK, BUT ABLE TO TRANSFER SELF SHORT DISTANCE WITH VERBAL CUES. APETITE GOOD, BUT PT CONTINUES TO HAVE EMESIS FOLLOWING PO INTAKE, WHICH IS HIS BASELINE PER PT AND PT'S DAUGHTER. PT HAD NORCO 5/325 MG 1 TAB PO PRN C/O PAIN TO RIGHT SIDE OF NECK, RIGHT ARM AND SHOULDER. HAS EXTENSIVE BRUISING TO THESE AREAS FROM FALL AT HOME. DAUGHTER FED PT HIS MEALS THIS SHIFT.
--- NOTE | 2016-09-27 20:45 | NUR ---
PT ASSESSMENT COMPLETED. PT'S DAUGHTER COMES TO NURSE'S STATION, REPORTS THAT PT IS HAVING PAIN. UPON ASSESSMENT PT RATES PAIN 10/10. PRN PAIN MEDICATION GIVEN X 2. BRUISING CONTINUES TO R SIDE, PT REPORTS PAIN TO R NECK/SHOULDER. PT REPORTS BEING THIRSTY, ASSISTED PT TO TAKE A DRINK OF WATER. REMINDED PT TO TUCK HIS CHIN WHEN SWALLOWING, PT DEMONSTRATES APPROPRIATELY. NO COUGHING, CHOKING, OR VOMITTING AFTER DRINKING. PT DENIES OTHER NEEDS AT THIS TIME. CALL LIGHT WITHIN REACH. PT'S DAUGHTER REMAINS AT BEDSIDE.
--- NOTE | 2016-09-27 22:45 | NUR ---
PT RESTING IN BED WITH EYES CLOSED. RESPIRATIONS EVEN AND UNLABORED. PT APPEARS TO BE SLEEPING. CALL LIGHT WITHIN REACH. PT'S DAUGHTER SLEEPING AT BEDSIDE.
--- NOTE | 2016-09-28 01:57 | NUR ---
PT REPOSITIONED TO HIS L SIDE AND PROPPED WITH PILLOWS. PT DENIES NEED TO VOID, PAIN, NAUSEA. CALL LIGHT WITHIN REACH. PT'S DAUGHTER SLEEPING AT BEDSIDE.
--- NOTE | 2016-09-28 04:47 | NUR ---
BRUISING TO R NECK, ARM, AND SHOULDER FADING. NORCO X 1 THIS SHIFT. PT TOLERATED DRINKING THIN LIQUIDS THIS SHIFT WITH REMINDERS TO TUCK CHIN WHEN SWALLOWING. NO EPISODES OF CHOKING OR EMESIS. PT'S DAUGHTER FEEDS PT MEALS, OCCUPATIONAL THERAPY GOAL FOR PT TO FEED SELF. ENCOURAGE PT TO SELF FEED. 1 PA WITH FWW, PT WEAK.
--- NOTE | 2016-09-28 07:53 | NUR ---
PT SLEEPING SOUNDLY. NO S/S DISTRESS OR DISCOMFORT. DAUGHTER ASLEEP ON COUCH.
--- NOTE | 2016-09-28 09:50 | NUR ---
PT ATE 75% OF BREAKFAST, PT REPORTED THAT HE FED HIMSELF PART OF BREAKFAST, DAUGHTER ASSISTED WITH REST. DAUGHTER REPORTED THAT PT HAD EMESIS FOLLOWING BREAKFAST. HAD 50 CC EMESIS IN EMESIS BAG. PT SITTING UPRIGHT IN RECLINER, DRINKING ICED TEA. ENCOURAGED PT TO INCREASE HIS PO FLUID INTAKE, AND TO TUCK CHIN DOWN WITH SWALLOWS. PT RETURN DEMONSTRATED THIS. PT REPORTED PAIN TO RIGHT NECK, ARM, SHOULDER AREAS. GAVE NORCO 5/325 MG 1 TAB PO PRN.
--- NOTE | 2016-09-28 09:54 | NUR ---
SCHEDULED METOPROLOL HELD DUE TO BP LOWER THAN PARAMETERS FOR MEDICATION.
--- NOTE | 2016-09-28 11:16 | NUR ---
PATIENT UP TO CHAIR, FINISHED PHYSICAL THERAPY. PATIENT DENIES PAIN, IS RELAXING IN CHAIR. DAUGHTER IN ROOM WITH PATIENT.
--- NOTE | 2016-09-28 11:30 | NUR ---
adjusted patient in chair. dental care has been done by daughter. linens changed. talked to patient and daughter about assisting with a shower later this afternoon before dinner time. room picked up. no other needs at this time.
--- NOTE | 2016-09-28 12:08 | NUR ---
PT SITTING UPRIGHT IN RECLINER, FED HIMSELF APROXIMATELY 40% OF LUNCH, STATES THAT HE DOES NOT WANT TO EAT MORE AT THIS TIME. NO EMESIS THUS FAR. DAUGHTER IN ROOM WITH PT.
--- NOTE | 2016-09-28 15:01 | NUR ---
PT SITTING UP IN RECLINER, FEET ELEVATED. DRANK 100% OF ICED TEA, REQUESTED MORE. ORDERED MORE ICED TEA, AND PROVIDED PT WITH FRESH ICE WATER. PT HAS HAD NO FURTHER EMESIS SINCE THIS AM FOLLOWING BREAKFAST.
--- NOTE | 2016-09-28 16:00 | NUR ---
PT TO DIAGNOSTIC IMAGING VIA W/C FOR MODIFIED BARRIUM SWALLOW EVALUATION.
--- NOTE | 2016-09-28 16:44 | NUR ---
PT DID WELL THIS SHIFT. WORKED WITH PHYSICAL THERAPY, AMBULATED IN HALLS. ALSO SAT UP IN RECLINER, UPRIGHT FOR MEALS. DID HAVE 50 CC EMESIS AFTER BREAKFAST, BUT NO EMESIS AFTER LUNCH, AND IS DRINKING PO FLUIDS WELL. PREFERS ICED TEA. UP WITH 1 PERSON STANDBY ASSIST WITH VERBAL CUES. HAD BM THIS SHIFT. IS CURRENTLY IN DIAGNOSTIC IMAGING FOR SWALLOW EVAL BARRIUM STUDY.
--- NOTE | 2016-09-28 17:08 | NUR ---
ASSITED PATIENT WITH SHOWER. SHAMPOO AND JIMI CARE DONE. LOTION APPLIED. CLEAN CLOTHES ON. PATIENT SITTING UP IN CHAIR WITH CALL BUTTON IN REACH NO OTHER NEEDS AT THIS TIME.
--- NOTE | 2016-09-28 17:09 | NUR ---
PATIENT FLOATING TWO PILLOWS UNDER BOTTOM.
--- NOTE | 2016-09-28 19:20 | NUR ---
BEDSIDE REPORT RECEVIED FROM OFFGOING NURSE. PT SITTING UP IN CHAIR WITH DAUGHTER AT BEDSIDE. PT DENIES PAIN OR NAUSEA, NEEDS AT THIS TIME. CALL LIGHT WITHIN REACH.
--- NOTE | 2016-09-28 21:15 | NUR ---
PT ASSESSMENT COMPLETED. PT C/O PAIN WITH MOVEMENT. REQUESTS PAIN MEDICATION. PRN PAIN MEDICATION GIVEN ALONG WITH SCHEDULED MEDICATIONS. PT CONTINUES TO HAVE LARGE AREAS OF BRUISING TO R SIDE. IV DC'D PER MD ORDER, NO IV ACCESS RE-ESTABLISHED. PT DENIES OTHER NEEDS, SITTING UP IN CHAIR. CALL LIGHT IN LAP. PT STATES HE WOULD LIKE TO STAY IN CHAIR UNTIL THE BASEBALL GAME IS OVER. PT'S DAUGHTER DENIES NEEDS WELL.
--- NOTE | 2016-09-29 04:36 | NUR ---
UNEVENTFUL SHIFT. PRN PAIN MEDICATION X 2. NO EPISODES OF EMESIS. IV DC'D, NO IV ACCESS. 1PA WITH FWW. POSSIBLE DC TODAY.
--- NOTE | 2016-09-29 07:15 | NUR ---
BEDSIDE REPORT, PT RESTING IN BED EYES CLOSED RR EVEN/SHALLOW AT 16 BPM NO DISTRESS NOTED.
--- NOTE | 2016-09-29 08:29 | NUR ---
PT UP TO RECLINER FOR BREAKFAST, DAUGHTER AT BEDSIDE. PT REPORTS INCREASED PAIN WITH ACTIVITY AT RIGHT NECK/SHOULDER, NORCO PRN TO BE ADMINISTERED. PT REQUEST TO EAT BEFORE MED PASS.
--- NOTE | 2016-09-29 10:15 | NUR ---
THIS PT SEEMS IN GOOD ATTITUDE, IS VERY RECEPTIVE TO PRAYER. HIS DAUGHTER IS WITH HIM, BUT SHE SAID SHE HAS TO BE IN [place] TOMORROW BECAUSE HER HAUGHTER IS HAVING SURGERY. I OFFERED PRAYER FOR HER AND SHE WAS VERY RECEPTIVE. I PRAY SAFETY AND STRENGTH FOR HER SHE GOES THROUGH THIS STRESSFUL TIME.
--- NOTE | 2016-09-29 10:19 | NUR ---
SPEECH THERAPY REPORTED TO RN THAT PT HAD EMESIS AFTER WORKING WITH HIM THAT HE WAS UNABLE TO HOLD WATER DOWN.
--- NOTE | 2016-09-29 11:45 | NUR ---
PT RESTING IN RECLINER EYES CLOSED RR EVEN/SHALLOW AT 18 BPM NO DISTRESS NOTED PT APPEARS TO BE SLEEPING AT THIS TIME
--- NOTE | 2016-09-29 12:14 | NUR ---
ASKED PT ABOUT SHOWERING SAID HE WASN'T SURE, WILL ASK AGAIN LATER
--- NOTE | 2016-09-29 14:03 | NUR ---
PT UP FROM RECLINER TO VOID THEN TO BED HAD 25ML EMESIS WITH ACTIVITY.
--- NOTE | 2016-09-29 14:30 | NUR ---
SHAVED FACE.PATIENT LAYING IN BED WATCHING TV. CALL BUTTON IN REACH. STATES NO OTHER NEEDS AT THIS TIME.
--- NOTE | 2016-09-29 14:54 | NUR ---
UPDATED IN REGARDS TO PT LOW URIE OUT ALSO TEA COLOR. PT ALSO CONTINUES TO HAS INTERMITTEN EMESIS THROUGHOUT DAY.
--- NOTE | 2016-09-29 18:11 | NUR ---
PT HAS CONSUMED APPROXIMATLY 40% OF MEALS CONTINUES TO HAVE INTERMITTEN EMESIS, LOW URINE OUT TEA COLORED, UPDATED ON THIS TODAY. PT WAS UP TO AMBULATE WITH PHYSICAL THERAPY IN HALLS, O.T., AND S.T. DAUGHTER HAS BEEN GONE MOST OF SHIFT. PT HAS BEEN UP TO RECLINER FOR ALL MEALS, SCDS/HEEL PROTECTORS ON WHILE IN BED. PT IS ONE PERSON STANDBY ASSIST WITH FWW. NORCO HAS BEEN ADMINSTERED TWICE OVER SHIFT WILL ASSESS FOR NEXT DOSE.
--- NOTE | 2016-09-29 19:15 | NUR ---
BEDSIDE REPORT RECEIVED FROM OFFGOING NURSE. PT VISITING WITH FAMILY/FRIENDS AT BEDSIDE. PT REQUESTS TO USE BATHROOM AFTER FAMILY LEAVES. PT SITTING ON TOILET WITH CALL LIGHT STRING IN HAND, AGREES THAT HE WILL CALL WHEN HE IS FINISHED.
--- NOTE | 2016-09-29 22:15 | NUR ---
PT RESTING WITH EYES CLOSED. RESPIRATIONS EVEN AND UNLABORED. PT APPEARS TO BE SLEEPING. CALL LIGHT IN LAP.
--- NOTE | 2016-09-30 00:45 | NUR ---
REPOSITIONED PATIENT TO R SIDE AND PROPPED WITH PILLOWS. PT REQUESTS TO USE THE URINAL, ASSISTANCE PROVIDED. DENIES OTHER NEEDS AT THIS TIME. CALL LIGHT WITHIN REACH.
--- NOTE | 2016-09-30 03:00 | NUR ---
PT RESTING IN BED WITH EYES CLOSED. RESPIRATIONS EVEN AND UNLABORED. PT APPEARS TO BE SLEEPING. CALL LIGHT WITHIN REACH.
--- NOTE | 2016-09-30 04:45 | NUR ---
PT REQUESTING TO USE THE URINAL. PT ASSISTED AND THEN REPOSITIONED. PT DENIES OTHER NEEDS. CALL LIGHT IN LAP.
--- NOTE | 2016-09-30 06:00 | NUR ---
PT SLEPT WELL THIS SHIFT. NORCO X 1 FOR PAIN. ZERO EPISODES OF EMESIS THIS SHIFT. PT TOLERATING THICKENED LIQUIDS WELL. FAMILY NO LONGER AT BEDSIDE. URINE REMAINS CONCENTRATED. SCD'S, TEDS, AND HEEL PROTECTORS. 1 PA WITH FWW. NO IV ACCESS
--- NOTE | 2016-09-30 07:35 | NUR ---
BEDSIDE HANDOFF REPORT RECEIVED FROM CREATIVE MANAGER RN. PT SLEEPING, LEFT UNDISTURBED.
--- NOTE | 2016-09-30 08:21 | NUR ---
PT RESTING IN BED. OCCUPATIONAL THERAPY AND SPEECH THERAPY AT BEDSIDE. PT ASSITED WITH DRESSING. PT ASSITD TO CHAIR. PT ABLE TO FEED SELF. PT LUNG SOPUNDS CLEAR, ON ROOM AIR. PT BOWEL TONES ACTIVE, DENIES NAUSEA. PT STATES "I AM GOING TO TRY NOT TO TAKE PAIN MEDICATION TODAY, I THINK I HAD TOO MUCH YESTERDAY." DISCUSSED PAIN MANAGEMENT WITH PT. PT DENIES NEEDS AT THIS TIME.
--- NOTE | 2016-09-30 08:30 | NUR ---
patient getting up with therapy. face washed. oral care done.
--- NOTE | 2016-09-30 10:34 | NUR ---
PT ASSISTED TO CHAIR. HAD LARGE LOOSE BOWEL MOVEMENT. PT PROVIDED WITH FRESH WATER, THICKENED. PT RATING PAIN 9/10, REFUSING PAIN MEDICATION. PT DENIES NEEDS AT THIS TIME.
--- NOTE | 2016-09-30 11:24 | NUR ---
I STOPPED TO SEE THIS PT BUT HE WAS SLEEPING SO I LEFT.
--- NOTE | 2016-09-30 11:48 | NUR ---
CLEANED UP PATIENTS ROOM. PARTH SIMMONS GOT PATIENT SET UP FOR LUNCH. CALL LIGHT WITHIN REACH.
--- NOTE | 2016-09-30 15:31 | NUR ---
PT SLEEPING, LEFT UNDISTURBED.
--- NOTE | 2016-09-30 17:28 | NUR ---
PT HAD SPEECH EVAL THIS AM, CONTINUE NECTAR THICK AND CHOPPED DIET, PT TOLERATING WELL. PT ABLE TO BE MORE INDEPENDENT WITH ADLS, ABS WITH FWW FOR AMBULATION. PT LUNG SOUNDS CLEAR, ON ROOM AIR. PT REFUSED PAIN MEDICATION TODAY. PT WORKED WITH PHYSICAL THERAPY, WALKED IN [place]. PT WITHOUT EMESIS. HAD LARGE LOOSE BM TODAY. VOIDING QS.
--- NOTE | 2016-09-30 19:00 | NUR ---
RECEIVED REPORT AT 1900. PT WAS IN CHAIR STILL EATING HIS DINNER. PT SEEMS TO DO WELL
--- NOTE | 2016-09-30 20:45 | NUR ---
I ASSISTED PT BACK TO BED. PT NOW IS A ONE PERSON ASSIST WITH HIS WALKER. PT IS STILL SORE ON HIS RIGHT SHOULDER BUT HE DID NOT ASK FOR PAIN MEDICATION. THERE IS STILL EXTENSIVE BRUISING ON HIS LEFT UPPER ARM AND BODY. ALL LOBES WERE CLEAR, PULSES WERE +2, NO EDEMA PRESENT, V/S WERE WNL. NO NEW ISSUES NOTED ON THIS PT.
--- NOTE | 2016-09-30 23:36 | NUR ---
ASSISTED PT WITH USING URINAL. PT IS BACK IN BED. PT REFUSES HEEL PROTECTORS AND SCD'S AT THIS TIME. OUTPUT WAS 100ML. URINE IS CONCENTRATED. ENCOURAGED PT TO DRINK MORE.
--- NOTE | 2016-10-01 01:11 | NUR ---
PT IS SLEEPING AT THIS TIME.
--- NOTE | 2016-10-01 03:16 | NUR ---
ASSISTED PT WITH URINAL. DID BED CHANGE. PT BACK IN BED. PT DENIES PAIN AT THIS TIME.
--- NOTE | 2016-10-01 04:16 | NUR ---
PT IS STILL SLEEPING AT THIS TIME.
--- NOTE | 2016-10-01 05:17 | NUR ---
PT HAD UNEVENTFUL NIGHT. PT SLEEP ALL NIGHT. V/S WERE WNL. PT DENIED THE NEED FOR PAIN MEDICATION THIS SHIFT. NO CHANGE IN STATUS FOR THIS PT.
--- NOTE | 2016-10-01 08:09 | NUR ---
TALKED WITH PTS DAUGHTER MELONIE ABOUT PT BEING DC TOMORROW, SHE STATED SHE CAN BE HERE AROUND 11 AM. PT TOLD HER HE IS LOOKING FORWARD TO GOING HOME.
--- NOTE | 2016-10-01 09:20 | NUR ---
OCCUPATIONAL THERAPY AT BEDSIDE, ASSISTING PT WITH ADLS
--- NOTE | 2016-10-01 09:30 | NUR ---
PT SITTING IN CHAIR. PT ON ROOM AIR, LUNG SOUNDS CLEAR. PT DENIES PAIN, DISCUSSED PAIN MANAGEMENT WITH PT, PT REFUSING PAIN MEDICATION. PT WITH GOOD APPETITE, ATE 100% OF BREAKFAST. PT BOWEL TONES ACTIVE, DENIES NAUSEA. PT UP WITH SBA AND FWW. PT WITHOUT EDEMA, PULSES PALPABLE. PT DENIES NEEDS AT THIS TIME.
--- NOTE | 2016-10-01 10:43 | NUR ---
JUST A BRIEF HELLO AND PRAYER WITH PT. HE IS EXTREMELY HARD OF HEARING AND NOT REAL TALKATIVE BUT SAYS HE IS DOING OK CONSIDERING HIS SITUATION.
[2016-10-01] MEDS ORDERED: ATENOLOL25 MG PO (11:07)
--- NOTE | 2016-10-01 11:07 | NUR ---
MD TO BEDSIDE TO EVAULATE PT. PT RESTING IN CHAIR. PLAN TO DISCHARGE PT TOMORROW.
[2016-10-01] MEDS ORDERED: NORCO 5-325 TA1 EACH PO (11:36)
[2016-10-01] MEDS ORDERED: MIRALAX17 GM PO (11:36)
--- NOTE | 2016-10-01 14:00 | NUR ---
PT RESTING IN CHAIR, SLEEPING, LEFT UNDISTURBED.
--- NOTE | 2016-10-01 14:45 | NUR ---
FAXED CHART NOTES TO [facility] INCLUDING FACESHEET, H AND P, PROG NOTE, AND DC SUMMARY, IMAGING, MEDS AND LAB AND PT,OT, AND ST EVALS AND NOTES. I ALSO INCLUDED THE ORDER FOR HH. I TALKED WITH GUSTABO REGARDING THIS REFERAL WELL HAVE TALKED WITH Mario VERGARA TIME REGARDING THIS PT. PT PLANS ON BEING DC'D AROUND 11 AM TOMORROW.
--- NOTE | 2016-10-01 17:21 | NUR ---
PT ASSISTED TO CHAIR FOR DINNER. PT DENIES NEEDS AT THIS TIME.
--- NOTE | 2016-10-01 18:37 | NUR ---
PT ALERT/ORIENTED. PT INDEPENDENT FOR ADLS, NEEDS ASSISTANCE WITH DRESSING. PT ON ROOM AIR, LUNG SOUNDS CLEAR. PT ON DYSPHAGIA-NECTAR THICK DIET, TOLERATING WELL. PT DECLINED PAIN MEDICATION TODAY. PT SBA TO AMBULATE WITH FWW. VOIDING QS. PLAN FOR DISCHARGE TOMORROW.
--- NOTE | 2016-10-01 20:00 | NUR ---
[place] [id number]. PT WAS SLEEPING IN CHAIR
--- NOTE | 2016-10-01 21:15 | NUR ---
ALL LOBES ARE CLEAR. PT STILL HAS SIGNIFICANT PAIN IN HIS RIGHT SOULDER BUT REFUSES ANY PAIN MEDICATION AT THIS TIME. ASSISTED PT WITH URINAL AND ASSISTED PT BACK TO BED. V/S ARE WNL, URINE OUTPUT STILL IN NOT EXCELLENT AND URINE IS TEA COLOR. I ENCOURAGED PT TO DRINK MORE.
--- NOTE | 2016-10-01 23:07 | NUR ---
PT IS SLEEPING AT THIS TIME.
--- NOTE | 2016-10-02 03:00 | NUR ---
PT IS STILL SLEEPING AT THIS TIME.
--- NOTE | 2016-10-02 04:07 | NUR ---
PT IS SLEEPING AT THIS TIME.
--- NOTE | 2016-10-02 05:09 | NUR ---
PT OVERALL HAD AN UNEVENTFULL NIGHT. HE SLEEPT MOST OF THIS SHIFT. NO CHANGES IN STATUS FOR THIS PT.
--- NOTE | 2016-10-02 07:15 | NUR ---
BEDSIDE HANDOFF REPORT RECEIVED FROM BASE PLY HAND RN. PT SLEEPING, LEFT UNDISTURBED.
--- NOTE | 2016-10-02 09:30 | NUR ---
PT SITTING IN CHAIR. PT DENIES PAIN. PT LUNG SOUNDS CLEAR, ON ROOM AIR. PT WITH GOOD APPETITE, ATE 100% OF BREAKFAST. PT BLOOD PRESSURE 100/55, ATENOLOL HELD, PT DENIES LIGHT HEADEDNESS/DIZZINESS. PT WITHOUT EDEMA. BOWEL TONES ACTIVE, WITHOUT EMESIS. PT ASKING QUESTIONS ABOUT DISCHARGE, DISCUSSED PLAN OF CARE. PT DENIES NEEDS AT THIS TIME.
--- NOTE | 2016-10-02 10:09 | NUR ---
MD NOTIFIED OF BLOOD PRESSURE 100/55, NOTIFIED ATENOLOL HELD, MD VERBAL ORDER TO GIVEN ATENOLOL.
--- NOTE | 2016-10-02 12:23 | NUR ---
I had the patient do as much as he could when he took a showered and got dressed.
--- NOTE | 2016-10-02 13:58 | NUR ---
DISCHARGE INSTRUCTIONS COMPLETED WITH DAUGHTER RAJAN. DETAILED INSTRUCTION ON PRESCRIPTIONS AND MEDICATIONS. DAUGHTER VERBALIZED UNDERSTANDING, STATED WHICH MEDICATIONS TO DISCONTINUE AND CHANGES WITH MEDICATIONS. EDUCATION PROVIDED ON DIET, DAUGHTER VERBALIZED ACCEPTABLE FOODS. PT WITHOUT IV ACCESS. BELONGINGS RETURNED TO PT.
== END 2016-10-02 14:00 | disposition home health service (06) | DRG 556 ==
LOC: MS 08:55
PROVIDERS: ADMIT Internal Medicine
DX: M62.81 Muscle weakness (generalized) (principal); I50.22 Chronic systolic (congestive) heart failure; D61.818 Other pancytopenia; S40.011D Contusion of right shoulder, subsequent encounter; W19.XXXD Unspecified fall, subsequent encounter; I48.91 Unspecified atrial fibrillation; R13.19 Other dysphagia; R13.12 Dysphagia, oropharyngeal phase; I11.0 Hypertensive heart disease with heart failure; R29.6 Repeated falls; D46.9 Myelodysplastic syndrome, unspecified; G89.29 Other chronic pain; M54.5 Low back pain; M19.90 Unspecified osteoarthritis, unspecified site; K21.9 Gastro-esophageal reflux disease without esophagitis; R16.2 Hepatomegaly with splenomegaly, not elsewhere classified; Z95.1 Presence of aortocoronary bypass graft; Z88.4 Allergy status to anesthetic agent; Z79.891 Long term (current) use of opiate analgesic; Z79.899 Other long term (current) drug therapy
CPT/HCPCS: 70360; 73030; 74230; 92526; 92610; 92611; 97110; 97116; 97165; 97530; 97535; J7030

== ENCOUNTER 2017-02-17 16:40 | Emergency (ER) | payer MEDICARE ==
[~2017-02-17] VITALS: Ht 180.3 cm; Wt 74.4 kg
[~2017-02-17 16:40] MED LIST changes: +MIRALAX17 GM PO
[2017-02-17] MEDS ORDERED: DOXAZOSIN MESYLA2 MG PO (18:44)
[2017-02-17] MEDS ORDERED: K-TAB ER20 MEQ PO (18:44)
[2017-02-17] MEDS ORDERED: LASIX20 MG PO (18:44)
[2017-02-17] MEDS ORDERED: TAMSULOSIN HCL0.4 MG PO (18:45)
[2017-02-17] MEDS ORDERED: NORCO 5-325 TA1 EACH PO (21:47)
== END 2017-02-17 21:57 | disposition home or self-care (01) ==
LOC: ED 16:40
DX: S20.211A Contusion of right front wall of thorax, initial encounter (principal); I48.91 Unspecified atrial fibrillation; I10 Essential (primary) hypertension; Z88.8 Allergy status to other drugs, medicaments and biological substances; Z79.899 Other long term (current) drug therapy; W01.198A Fall on same level from slipping, tripping and stumbling with subsequent striking against other object, initial encounter
CPT/HCPCS: 71101; 81001; 99283

== ENCOUNTER 2017-02-22 11:33 | Emergency (ER) | payer MEDICARE ==
[~2017-02-22] VITALS: Ht 180.3 cm; Wt 74.4 kg
[~2017-02-22 11:33] MED LIST changes: +K-TAB ER20 MEQ PO; +TAMSULOSIN HCL0.4 MG PO
[2017-02-22] MEDS ORDERED: PYRIDIUM200 MG PO (13:28)
[2017-02-22] MEDS ORDERED: BACTRIM DS TAB1 EACH PO (13:28)
== END 2017-02-22 13:44 | disposition home or self-care (01) ==
LOC: ED 11:33
DX: N39.0 Urinary tract infection, site not specified (principal); I48.91 Unspecified atrial fibrillation; D69.6 Thrombocytopenia, unspecified; Z95.1 Presence of aortocoronary bypass graft; Z90.49 Acquired absence of other specified parts of digestive tract; Z95.0 Presence of cardiac pacemaker; Z88.4 Allergy status to anesthetic agent; Z79.899 Other long term (current) drug therapy
CPT/HCPCS: 51798; 81001; 87077; 87088; 87186; 99283

== ENCOUNTER 2017-02-28 17:16 | Observation (INO) | payer MEDICARE ==
[~2017-02-28] VITALS: Ht 180.3 cm; Wt 74.4 kg
[~2017-02-28 17:16] MED LIST changes: +BACTRIM DS TAB1 EACH PO; +PYRIDIUM200 MG PO
--- NOTE | 2017-02-28 18:48 | NUR ---
RECEIVED TELEPHONE REPORT FROM MARY RN IN ED. WILL EXPECT PATIENT ON FLOOR AROUND SHIFT CHANGE. WILL DO QUICK ADMIT. ADMITTING FOR COMFORT CARE. CAMPBELL IN PLACE PER ED RN.
--- NOTE | 2017-02-28 19:07 | NUR ---
PT ADMITTED TO ROOM 115 AT 0700. PT NON RESPONSIVE. ASSESSED SKIN FOR BREAKDOWN. COCCYX HAS EXCORIATION. RIGHT HIP RED SPOT THE SIZE OF A QUARTER LOOKS LIKE HEALING WOUND. SCARS ON RIGHT KNEE. HEEL BOOTS PLACED ON BILAT FEET. FEET COLD. MULTIPLE FAMILY MEMBERS AT BEDSIDE.
--- NOTE | 2017-02-28 19:36 | NUR ---
patient resting comfortably in bed, breathing is mildly labored. IV morphine and sublingual morphine given for comfort. family at bedside. FLACC score of 4.
--- NOTE | 2017-02-28 20:03 | NUR ---
PROVIDED WARM BLANKET FOR FEET FOR COMFORT.
--- NOTE | 2017-02-28 20:23 | NUR ---
PROVIDED MOUTH SWAB, LIP BALM, ATROPINE DROPS, AND MORPHINE FOR COMFORT. PATIENT IS RESTING COMFORTABLY IN BED. EXTREMITIES ARE WARM, NO APPARENT SIGNS OF DISCOMFORT, FLACC SCORE OF 0. FAMILY AT BEDSIDE.
--- NOTE | 2017-02-28 21:26 | NUR ---
PATIENT RESTING COMFORTABLY IN BED, BREATHING IS MILDLY LABORED. PRN IV MORPHINE GIVEN PER EMAR. MOUTH CARE DONE, REPOSITIONED FOR COMFORT. FAMILY AT BEDSIDE.
--- NOTE | 2017-02-28 22:33 | NUR ---
I WAS CALLED IN FOR THIS PT WHO WAS BROUGHT TO ER FOR SOB. I CAME IN AND PRAYED WITH FAMILY THAT WAS HERE, WAITED FOR OTHER FAMILY TO ARRIVE AND SAID PT MAY NOT RECOVER FROM THIS EPISODE. DETERMINED PT HAS PNEUMONIA AND IS POSSOBLY NOT STRONG ENOUGH TO RECOVER. RECOMENDED COMFORT CARE.I STAYED WITH FAMILY WHILE PT TRANSFERRED TO MED SURG. AT FIRST THEY WERE SHAKEN BY THIS, BUT TIME PROGRESSES THEY ARE COMING TO TERMS AND THEIR EMOTIONS ARE MORE IN CHECK. I CHECK ON THEM FROM TIME TO TIME, BUT I WILL PROBABLY GO HOME TO REST THEN COME BACK WHEN NECESSARY.
--- NOTE | 2017-02-28 22:47 | NUR ---
PATIENT RESTING IN BED, PROVIDED PRN IV MORPHINE DUE TO MILD DYSPNEA. PROVIDED ATROPINE DROPS FOR SECRETIONS. PERFORMED ORAL CARE. PATIENT IS WARM AND APPEARS COMFORTABLE. FAMILY AT BEDSIDE.
--- NOTE | 2017-02-28 23:57 | NUR ---
PATIENT RESTING COMFORTABLY IN BED, BREATHING EVEN AND UNLABORED. FLACC SCORE OF 0. CALL LIGHT WITHIN REACH.
--- NOTE | 2017-03-01 01:18 | NUR ---
PATIENT IS APENIC AND HAS NO APICAL HEART BEAT FOR ONE MINUTE. DR. JUDD NOTIFED. FAMILY AT BEDSIDE.
--- NOTE | 2017-03-01 01:25 | NUR ---
DR. JUDD TO [facility] TO DECLARE PATIENT'S DEMISE.
--- NOTE | 2017-03-01 01:26 | NUR ---
CALLED [facility], STATES HE IS ON HIS WAY TO FLOOR.
--- NOTE | 2017-03-01 01:58 | NUR ---
[facility] LINE NOTIFIED OF PATIENT'S DEMISE.
--- NOTE | 2017-03-01 02:03 | NUR ---
SPOKE WITH THO GILL AND TRE GREY- DAUGHTERS IN PT ROOM, REQUESTED [facility] [employer] BE CONTACTED. [facility] PT DID NOT WISH TO BE ORGAN DONAR. THO CALLED AND SPOKE WITH MELONIE MOYA DAUGHTER LISTED AND SHE AGREES. PERSONAL BELONGINGS TAKEN BY TRE GREY. PASTOR HORVATH IS HERE WITH FAMILY. DENIES FURTHER NEEDS. [facility] CALLED AND INFO GIVEN.
--- NOTE | 2017-03-01 02:52 | NUR ---
[employer] HERE TO [employer]PER[employer] BODY. FAMILY HAS LEFT AT THIS TIME.
--- NOTE | 2017-03-01 02:58 | NUR ---
WHEN PT , I PRAYED WITH FAMILY THAT WAS HERE AND TALKED WITH THEM A LITTLE BIT. THEY STAYED ABOUT AN HOUR THEN SAID CALL HOME (JAELYN). CHARGE NURSE (QI) CALLED, FAMILY SAID THEY WOULD STAY TILL HOME REP ARRIVED. WHEN THEY DID ARRIVE, THE DAUGHTERS TALKED WITH REP AND SET UP A TIME TO MEET TO MAKE ARRANGEMENTS. THE FAMILY THEN LEFT. I COVERED THE BODY WITH THE PASSAGE QUILT AND ESCORTED THE BODY DOWN TO THE TRANSPORT VAN. THE NIGHT SECURITY LADY SAID THAT SHE HAD WORKED WITH PT AT ONE TIME AND TALKED WITH DAUGHTERS, THEN SHE ALSO WALKED WITH US TO THE TRANSPORT VAN. I PRAY THIS FAMILY HAVE PEACE THEY THIS LIFE CHANGING EVENT IN THEIR LIVES.
== END 2017-03-01 01:18 ==
LOC: ED 17:16 → MS 17:18
PROVIDERS: ADMIT Internal Medicine
DX: J96.01 Acute respiratory failure with hypoxia (principal); J69.0 Pneumonitis due to inhalation of food and vomit; J15.9 Unspecified bacterial pneumonia; Z51.5 Encounter for palliative care; K22.2 Esophageal obstruction; I48.91 Unspecified atrial fibrillation; I11.0 Hypertensive heart disease with heart failure; I50.22 Chronic systolic (congestive) heart failure; D61.818 Other pancytopenia; Z66 Do not resuscitate; R13.12 Dysphagia, oropharyngeal phase; K21.9 Gastro-esophageal reflux disease without esophagitis; I35.0 Nonrheumatic aortic (valve) stenosis; E80.6 Other disorders of bilirubin metabolism; M54.9 Dorsalgia, unspecified; G89.29 Other chronic pain; R29.6 Repeated falls; Z88.4 Allergy status to anesthetic agent; Z79.2 Long term (current) use of antibiotics; Z79.891 Long term (current) use of opiate analgesic; Z95.1 Presence of aortocoronary bypass graft; Z95.0 Presence of cardiac pacemaker; Z79.899 Other long term (current) drug therapy
CPT/HCPCS: 51702; 71010; 80048; 81001; 85025; 87088; 96374; 96375; 96376; 99285; G0378; G0390; J1170; J2060; J2270